=== PATIENT | female | born 1970 | race Caucasian/White ===

== ENCOUNTER 2019-09-19 09:46 | Day surgery (SDC) | payer BC ==
[~2019-09-19 09:46] MED LIST: Lactated Ringers 1,000 ML IV SCH; Sodium Chloride 0.9% 10 ML SDV IV PRN; Sodium Chloride 0.9% 10 ML Syringe FLUSH PRN; Sodium Chloride 0.9% 2.5 ML Syringe FLUSH PRN
--- NOTE | 2019-09-19 11:01 | PCM.PREANE ---
Preanesthetic Assessment - Anesthesia/Transfusion/Family Hx Anesthesia History: Prior Anesthesia Without Reaction Family History of Anesthesia Reaction: No Transfusion History: No Prior Transfusion(s) Intubation History: Unknown - Review of Systems General: No Symptoms Pulmonary: No Symptoms Cardiovascular: No Symptoms Gastrointestinal: Abdominal Pain, Difficulty Swallowing Neurological: No Symptoms Other: Reports: None - Physical Assessment Vital Signs: Last Vital Signs Temp 36.7 C 09/19/19 10:45 Pulse 68 09/19/19 10:45 Resp 16 09/19/19 10:45 BP 109/64 09/19/19 10:45 Pulse Ox 98 09/19/19 10:45 Height: 5 ft 3 in Weight: 69.4 kg ASA Class: 2 Mental Status: Alert & Oriented x3 Airway Class: Mallampati = 1 Dentition: Reports: Normal Dentition Thyro-Mental Finger Breadths: 3 Mouth Opening Finger Breadths: 3 ROM/Head Extension: Full Lungs: Clear to Auscultation, Normal Respiratory Effort Cardiovascular: Regular Rate, Regular Rhythm - Lab Values: Laboratory Last Values Urine HCG, Qual NEGATIVE (NEGATIVE) 09/19/19 10:12 - Allergies Allergies/Adverse Reactions: Allergies Allergy/AdvReac Type Severity Reaction Status Date / Time No Known Allergies Allergy Verified 09/19/19 10:42 - Blood Blood Available: No - Anesthesia Plan Pre-Op Medication Ordered: None - Acknowledgements Anesthesia Type Planned: MAC Pt an Appropriate Candidate for the Planned Anesthesia: Yes Alternatives and Risks of Anesthesia Discussed w Pt/Guardian: Yes Pt/Guardian Understands and Agrees with Anesthesia Plan: Yes PreAnesthesia Questionnaire HEENT History: Reports: Other (See Below) Other HEENT History: reading glasses Cardiovascular History: Reports: Other (See Below) Other Cardiovascular History: "pre hypertension"- lost 10 pounds and cut on salts, BP ok now Respiratory History: Reports: None Gastrointestinal History: Reports: GERD Other Gastrointestinal History: difficulty swallowing Genitourinary History: Reports: Renal 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: Reports: Musculoskeletal History: Reports: Fracture Other Musculoskeletal History: hx fx sternum Neurological History: Reports: Migraines, Other (See Below) Other Neuro History: Neurologist 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", states due to vitamin B12 deficiency Psychiatric History: Reports: None Endocrine/Metabolic History: Reports: None Hematologic History: Reports: Anemia Immunologic History: Reports: None Oncologic (Cancer) History: Reports: Squamous Cell Carcinoma, Other (See Below) Other Oncologic History: Squamous Cell of scalp Dermatologic History: Reports: Other (See Below) - Infectious Disease History Infectious Disease History: Reports: Chicken Pox - Past Surgical History Head Surgeries/Procedures: Reports: None HEENT Surgical History: Reports: None Cardiovascular Surgical History: Reports: None Respiratory Surgical History: Reports: None GI Surgical History: Reports: None Female Surgical History: Reports: Breast Reduction Endocrine Surgical History: Reports: None Neurological Surgical History: Reports: Lumbar Spine Other Neurological Surgeries/Procedures: hx back surgery Musculoskeletal Surgical History: Reports: None Oncologic Surgical History: Reports: None Dermatological Surgical History: Reports: Skin Biopsy - SUBSTANCE USE Smoking Status *Q: Former Smoker Tobacco Use Within Last Twelve Months: No - HOME MEDS Home Medications: Home Meds Pantoprazole Sodium [Protonix] 40 mg PO DAILY 09/13/19 [History] Cyanocobalamin (Vitamin B12) [Vitamin B12] 1 tab PO ASDIRECTED 09/17/19 [History] Lutein/Minerals/Vit A,C & E [Ocuvite] 1 tab PO DAILY 09/17/19 [History] Multivit-Min/Iron/Folic/Lutein [Centrum Silver Women Tablet] 1 tab PO DAILY 09/17/19 [History] - CURRENT (IN HOUSE) MEDS Current Meds: Current Medications Lactated Ringer's (Ringers, Lactated) 1,000 mls @ 125 mls/hr IV ASDIRECTED FAUSTO Last Admin: 09/19/19 10:34 Dose: 125 mls/hr Documented by: Sodium Chloride (Saline Flush) 10 ml FLUSH ASDIRECTED PRN PRN Reason: Keep Vein Open Sodium Chloride (Saline Flush) 2.5 ml FLUSH ASDIRECTED PRN PRN Reason: Keep Vein Open Sodium Chloride (Saline Flush) 10 ml FLUSH ASDIRECTED PRN PRN Reason: Keep Vein Open Sodium Chloride (Saline Flush) 2.5 ml FLUSH ASDIRECTED PRN PRN Reason: Keep Vein Open Sodium Chloride (Normal Saline) 10 ml IV ASDIRECTED PRN PRN Reason: IV Use
[2019-09-19] MEDS ORDERED: Propofol 200 MG/20 ML SDV ONE (11:27)
[2019-09-19] MEDS ORDERED: Lidocaine 2% 5 ML SDV ONE (11:29)
--- NOTE | 2019-09-19 12:29 | PCM.OPNOTE ---
- General Post-Op/Procedure Note Date of Surgery/Procedure: 09/19/19 Operative Procedure(s): Diagnostic EGD Findings: Esophagitis with reflux and small area of narrowing above the area of inflammation in the esophagus. Mild inflammation of the antrum. Pre Op Diagnosis: Reflux Post-Op Diagnosis: Gastritis, Esophagitis associated with GERD Anesthesia Technique: [facility] [place] Primary Surgeon: Joselyn Shah Condition: Good
--- NOTE | 2019-09-19 14:07 | PCM.POSTAN ---
POST ANESTHESIA ASSESSMENT - MENTAL STATUS Mental Status: Alert, Oriented - VITAL SIGNS Vital Signs: Last Vital Signs Temp 36.1 C 09/19/19 12:50 Pulse 69 09/19/19 12:50 Resp 16 09/19/19 12:50 BP 129/77 09/19/19 12:50 Pulse Ox 99 09/19/19 12:50 - RESPIRATORY Respiratory Status: Respiratory Rate WNL, Airway Patent, O2 Saturation Stable - CARDIOVASCULAR CV Status: Pulse Rate WNL, Blood Pressure Stable - GASTROINTESTINAL GI Status: No Symptoms - PAIN Pain Score: 0 - POST OP HYDRATION Hydration Status: Adequate & Stable - OBSERVATIONS Free Text/Narrative:: No anesthesia problems
--- NOTE | 2019-09-19 14:08 | PCM48HPAN ---
Post Anesthesia Note - EVALUATION WITHIN 48HRS OF ANESTHETIC Vital Signs in Normal Range: Yes Patient Participated in Evaluation: Yes Respiratory Function Stable: Yes Airway Patent: Yes Cardiovascular Function Stable: Yes Hydration Status Stable: Yes Pain Control Satisfactory: Yes Nausea and Vomiting Control Satisfactory: Yes Mental Status Recovered: Yes Vital Signs: Last Vital Signs Temp 36.1 C 09/19/19 12:50 Pulse 69 09/19/19 12:50 Resp 16 09/19/19 12:50 BP 129/77 09/19/19 12:50 Pulse Ox 99 09/19/19 12:50 - COMMENTS/OBSERVATIONS Free Text/Narrative:: No anesthesia problems
--- NOTE | 2019-09-19 20:23 | OR ---
SURGEON: JOSELYN SHAH MD DATE OF PROCEDURE: 09/19/2019 PREOPERATIVE DIAGNOSIS: Reflux. POSTOPERATIVE DIAGNOSES: 1. Gastroesophageal reflux disease with esophagitis. 2. Gastritis. PROCEDURE PERFORMED: Diagnostic esophagogastroduodenoscopy with biopsy. PRIMARY SURGEON: Joselyn Shah MD ANESTHESIA: MAC. INSTRUMENT USED: Olympus endoscope. EXTENT OF EXAM: To the second portion of duodenum. PREPARATION: Good. LIMITATIONS: None. INDICATIONS FOR EXAMINATION: The patient is a 49-year-old female with chronic reflux. Recently, her symptoms have been worsening. Her primary care provider placed her on pantoprazole with good relief in her symptoms. However, the decision was made to proceed with diagnostic EGD. The patient and I discussed the procedure, expected perioperative course, and the risks. She verbalized understanding and wishes to proceed. PROCEDURE IN DETAIL: The patient was brought into the endoscopy suite and placed in a beach chair position. A time-out was completed verifying the patient's name, age, date of , allergies, and procedure to be performed. A bite block was placed in the patient's mouth. Monitored anesthesia care was induced and continuous oxygen was provided via nasal cannula throughout the procedure. After adequate sedation was achieved, a well-lubricated endoscope was placed in the patient's mouth and advanced under direct visualization to the second portion of duodenum. This appeared normal and a photograph was taken. The scope was then fully withdrawn while examining the color, texture, anatomy, and integrity mucosa of the upper GI tract. The duodenum appeared normal. The scope was brought into the stomach and a photograph was taken the pylorus as well as the GE junction. On inspection of the gastric mucosa, there appeared to be some mild gastritis within the antrum of the stomach. Biopsies were taken of the antrum, body, and fundus and sent for histologic review and H. pylori testing. No ulcers were noted. The scope was then brought into the distal esophagus. The Z-line appeared somewhat abnormal. There also appeared to be inflammation of the distal esophagus consistent with esophagitis. Photographs of this were taken. A biopsy was taken of the esophageal mucosa just above the Z-line. I closely monitored my biopsy site. The area appeared hemostatic. The patient did appear to have a mild stricture just above the area of inflammation, but this did not appear to cause any obstruction. The remainder of the esophagus was normal. The scope was removed and the procedure terminated. The patient was transferred to the PACU in stable condition. ENDOSCOPIC DIAGNOSES: 1. Gastroesophageal reflux disease with esophagitis. 2. Gastritis. RECOMMENDATIONS: I encouraged the patient to continue to take her pantoprazole. We will review her pathology results when she comes back to clinic in 2 weeks. MARTY WHITE /[id number]
== END 2019-09-19 13:18 | disposition home or self-care (01) ==
LOC: MW.SDS 09:46
PROVIDERS: ATTEND Surgery
DX: K21.0 Gastro-esophageal reflux disease with esophagitis (principal); K29.70 Gastritis, unspecified, without bleeding; K22.2 Esophageal obstruction; I10 Essential (primary) hypertension; Z87.891 Personal history of nicotine dependence; Z79.899 Other long term (current) drug therapy
CPT/HCPCS: 43239; 81025; J2001; J2704; J7120; 88305; 88312

== ENCOUNTER 2021-10-21 22:47 | Emergency (ER) | payer BC ==
[2021-10-22 00:28] LABS: CARBON DIOXIDE,CO2 26.2 mmol/L (21.0-32.0); POTASSIUM,K 4.1 mmol/L (3.5-5.1)
== END 2021-10-22 01:59 | disposition home or self-care (01) ==
LOC: MW.ED 22:47
DX: R53.1 Weakness (principal); I10 Essential (primary) hypertension; Z79.899 Other long term (current) drug therapy
CPT/HCPCS: 36415; 80053; 81003; 82947; 83735; 84443; 84484; 85025; 93005; 99285